=== PATIENT | male | born 1965 | race Two or more races ===

== ENCOUNTER 2017-12-29 18:13 | Emergency (ER) | payer MEDICAID ==
[~2017-12-29] VITALS: Ht 180.3 cm; Wt 77.1 kg
[~2017-12-29 18:13] MED LIST: AMOX500 PO; HYDACE10B PO; IBUP800 PO; NAPR550 PO; OXYACE5T PO
[2017-12-29 19:02] LABS: BASOPHILS ABSOLUTE AUTO 0.03 K/mm3 (0.00-0.23); BASOPHILS PERCENT AUTO 1 % (0-2); EOSINOPHILS ABSOLUTE AUTO 0.05 K/mm3 (0.00-0.68); EOSINOPHILS PERCENT AUTO 1 % (0-6); Hematocrit 50.7 % (37.0-53.0); Hemoglobin 17.3 g/dL (13.5-17.5); Mean Corpuscular HGB 31.1 pg (26.0-34.0); Mean Corpuscular HGB Conc 34.1 g/dL (31.5-36.5); Mean Corpuscular Volume 91 fL (80-100); Mean Platelet Volume 9.5 fL (9.1-12.4); Platelet Count 158 K/mm3 (150-400); RDW Standard Deviation 40.7 fL (35.1-46.3); Red Blood Cell Count 5.57 M/mm3 (4.30-5.90); White Blood Cell Count 5.48 K/mm3 (4.00-11.30)
[2017-12-29 19:06] LABS: IMMATURE GRAN ABSOLUTE AUTO 0.01 K/mm3 (0.00-0.10); IMMATURE GRAN PERCENT AUTO 0 % (0-1); LYMPHOCYTES ABSOLUTE AUTO 1.59 K/mm3 (0.84-5.20); LYMPHOCYTES PERCENT AUTO 29 % (21-46); MONOCYTES ABSOLUTE AUTO 1.08 K/mm3 (0.16-1.47); MONOCYTES PERCENT AUTO 20 % (4-13); NEUTROPHILS ABSOLUTE AUTO 2.72 K/mm3 (1.96-9.15); NEUTROPHILS PERCENT AUTO 50 % (41-73)
[2017-12-29 19:20] LABS: Alanine Aminotransfer (ALT/SGP 43 U/L (12-78); Albumin, Blood 3.5 g/dL (3.4-5.0); Albumin/Globulin Ratio 0.9 (0.8-1.8); Alk Phos 101 U/L (50-136); Anion Gap 6 mmol/L (6-16); Aspartate Aminotrans (AST/SGOT 30 U/L (12-37); Bilirubin, Total 0.2 mg/dL (0.1-1.0); Blood Urea Nitrogen 17 mg/dL (8-24); Bun/Creatinine Ratio 18.7 (12.0-20.0); CO2, Blood 29 mmol/L (21-32); Calcium, Blood 8.8 mg/dL (8.5-10.1); Chloride, Blood 101 mmol/L (98-108); Creatinine, Blood 0.91 mg/dL (0.60-1.20); Globulin, Blood 3.9 g/dL (2.2-4.0); Glomerular Filtration Rate >60 (60-); Glucose, Blood 123 mg/dL (70-99); Sodium, Blood 136 mmol/L (136-145); Total Protein, Blood 7.4 g/dL (6.4-8.2)
[2017-12-29 19:30] LABS: BAND PERCENT MAN 3 % (0-8); BASOPHILS PERCENT MAN 0 % (0-2); EOSINOPHILS ABSOLUTE MAN 0.05 K/mm3 (0.00-0.68); EOSINOPHILS PERCENT MAN 1 % (0-6); LYMPHOCYTES % ATYPICAL MANUAL 3 % (0-0); LYMPHOCYTES ABSOLUTE MAN 1.42 K/mm3 (0.84-5.20); LYMPHOCYTES PERCENT MAN 23 % (21-46); MONOCYTES ABSOLUTE MAN 1.42 K/mm3 (0.16-1.47); MONOCYTES PERCENT MAN 26 % (4-13); NEUTROPHILS ABSOLUTE MAN 2.57 K/mm3 (1.96-9.15); SEG NEUTROPHILS PERCENT MAN 44 % (41-73); TOTAL CELLS COUNTED 100
[2017-12-29 20:54] LABS: Source, Urine Voided
[2017-12-29 20:56] LABS: Bilirubin, Urine Neg (Neg); Blood, Urine Neg (Neg); Glucose Qualitative, Urine Neg (Neg); Ketones, Urine Neg (Neg); Leukocyte Esterase, Urine Neg (Neg); Nitrite, Urine Neg (Neg); Protein, Urine 1+ (Neg); Urobilinogen, Urine NORM (Normal)
[2017-12-29 21:02] LABS: Appearance, Urine Hazy (Clear); Bacteria Not Seen /hpf; Color, Urine Yellow (P-Yellow); Mucus Mod (0-Heavy); Red Blood Cells, Urine Not Seen /hpf (0-2); Squamous Epithelial Cells Rare /hpf (Few); White Blood Cells, Urine Rare /hpf (0-5)
[2017-12-29] MEDS ORDERED: Roxicodone5 MG PO (21:23)
[2017-12-29] MEDS ORDERED: Zovirax800 MG PO (21:29)
== END 2017-12-29 21:38 | disposition home or self-care (01) ==
LOC: ER 18:13
PROVIDERS: Emergency Medicine
DX: B02.9 Zoster without complications (principal); F17.210 Nicotine dependence, cigarettes, uncomplicated
CPT/HCPCS: 36415; 80053; 81001; 85025; 96374; 96375; 99283-25; J1170; J1885; Q0163

== ENCOUNTER 2018-10-22 21:43 | Emergency (ER) | payer MEDICAID ==
[~2018-10-22] VITALS: Ht 177.8 cm; Wt 70.3 kg
[~2018-10-22 21:43] MED LIST changes: +Roxicodone5 MG PO; +Zovirax800 MG PO
[2018-10-22] MEDS ORDERED: IBUP600 PO (23:25)
[2018-10-22] MEDS ORDERED: Bactrim Ds Tab1 EACH PO (23:25)
[2018-10-22] MEDS ORDERED: CEPH500 PO (23:25)
[2018-10-23 00:20] LABS: Body Fluid Crystals NEG (NEGATIVE)
[2018-10-23 00:27] LABS: Appearance, Synovial Fluid Cloudy (Clear); Color, Synovial Fluid Dark Yellow (None-P Yel); RBC Count, Synovial Fluid 9000 /mm3 (0-0); WBC Count, Synovial Fluid 15625 /mm3 (0-180)
[2018-10-23 00:30] LABS: Protein, Body Fluid 5.6 g/dL
[2018-10-23 00:34] LABS: Glucose, Body Fluid <1 mg/dL
[2018-10-23 00:42] LABS: Lymphs, Synovial Fluid 1 % (0-15); Monocytes/Macrophages, Synovia 26 % (0-65); Neutrophils, Synovial Fluid 73 % (0-24)
== END 2018-10-22 23:39 | disposition home or self-care (01) ==
LOC: ER 21:43
PROVIDERS: Emergency Medicine
DX: M70.11 Bursitis, right hand (principal); F17.210 Nicotine dependence, cigarettes, uncomplicated
CPT/HCPCS: 20605; 73130; 82945; 84157; 87070; 87075; 87205; 89051; 89060; 99283-25

== ENCOUNTER 2023-05-02 19:08 | Emergency (ER) | payer OTHER, MEDICARE ==
[~2023-05-02] VITALS: Ht 180.3 cm; Wt 79.4 kg
[~2023-05-02 19:08] MED LIST changes: +Bactrim Ds Tab1 EACH PO; +CEPH500 PO; +IBUP600 PO
[2023-05-02] MEDS ORDERED: Ondansetron HCl 2 MG / ML 2ML Vial IV ONE (20:50)
[2023-05-02] MEDS ORDERED: HYDROmorphone HCl/Pf 1MG SYR IV PRN (20:50)
[2023-05-02] MEDS ORDERED: NiCARdipine HCL 25 MG in NS 250 ML IV SCH (21:50)
[2023-05-02 21:57] LABS: BASOPHILS ABSOLUTE AUTO 0.04 K/mm3 (0.00-0.23); BASOPHILS PERCENT AUTO 0 % (0-2); EOSINOPHILS ABSOLUTE AUTO 0.05 K/mm3 (0.00-0.68); EOSINOPHILS PERCENT AUTO 0 % (0-6); Hematocrit 47.3 % (37.0-53.0); IMMATURE GRAN ABSOLUTE AUTO 0.09 K/mm3 (0.00-0.10); IMMATURE GRAN PERCENT AUTO 1 % (0-1); LYMPHOCYTES ABSOLUTE AUTO 1.55 K/mm3 (0.84-5.20); LYMPHOCYTES PERCENT AUTO 9 % (21-46); MONOCYTES ABSOLUTE AUTO 1.05 K/mm3 (0.16-1.47); MONOCYTES PERCENT AUTO 6 % (4-13); Mean Corpuscular HGB 31.5 pg (26.0-34.0); Mean Corpuscular HGB Conc 33.8 g/dL (31.5-36.5); Mean Corpuscular Volume 93 fL (80-100); Mean Platelet Volume 9.1 fL (9.1-12.4); NEUTROPHILS ABSOLUTE AUTO 14.08 K/mm3 (1.96-9.15); NEUTROPHILS PERCENT AUTO 84 % (41-73); Platelet Count 245 K/mm3 (150-400); RDW Coefficient Variation 12.8 % (11.7-14.2); RDW Standard Deviation 44.1 fL (35.1-46.3); Red Blood Cell Count 5.08 M/mm3 (4.30-5.90); White Blood Cell Count 16.86 K/mm3 (4.00-11.30)
[2023-05-02 22:16] LABS: Alanine Aminotransfer (ALT/SGP 29 U/L (12-78); Albumin, Blood 3.4 g/dL (3.4-5.0); Alk Phos 80 U/L (50-136); Anion Gap 2 mmol/L (6-16); Aspartate Aminotrans (AST/SGOT 43 U/L (12-37); Bilirubin, Total 0.5 mg/dL (0.1-1.0); Blood Urea Nitrogen 16 mg/dL (8-24); Bun/Creatinine Ratio 18.1 (12.0-20.0); CO2, Blood 26 mmol/L (21-32); Calcium, Blood 8.5 mg/dL (8.5-10.1); Chloride, Blood 112 mmol/L (98-108); Creatinine, Blood 0.89 mg/dL (0.60-1.20); Globulin, Blood 3.4 g/dL (2.2-4.0); Glomerular Filtration Rate 99 (60-); Glucose, Blood 124 mg/dL (70-99); Potassium, Blood 3.7 mmol/L (3.5-5.5); Sodium, Blood 140 mmol/L (136-145); Total Protein, Blood 6.8 g/dL (6.4-8.2)
[2023-05-02] MEDS ORDERED: levETIRAcetam 1,000 MG in NS 100 ML IV ONE (23:05)
[2023-05-02 23:23] LABS: Source, Urine Clean Catch
[2023-05-02 23:26] LABS: Bilirubin, Urine Neg (Neg); Blood, Urine Neg (Neg); Glucose Qualitative, Urine Neg (Neg); Ketones, Urine 2+ (Neg); Leukocyte Esterase, Urine Neg (Neg); Nitrite, Urine Neg (Neg); Protein, Urine Neg (Neg); Urobilinogen, Urine NORM (Normal)
[2023-05-02 23:32] LABS: Salicylate <1.7 mg/dL (2.8-20.0)
[2023-05-02 23:40] LABS: International Normalized Ratio 0.94; Prothrombin Time Results 9.9 Sec (9.7-11.5)
[2023-05-02 23:44] LABS: Acetaminophen, Random <2.0 ug/mL (10.0-30.0)
[2023-05-02 23:45] LABS: Appearance, Urine Clear (Clear); Color, Urine Pale Yellow (P-Yellow)
[2023-05-02 23:48] LABS: U Cannabinoids Screen DETECTED
[2023-05-02 23:49] LABS: U Amphetamine Screen DETECTED; U Barbituate Screen Not Detected; U Benzodiazapine Screen Not Detected; U Buprenorphine Screen Not Detected; U Cocaine Screen Not Detected; U Methadone Screen Not Detected; U Methamphetamine Screen DETECTED; U Opiates Screen DETECTED; U Oxycodone Screen Not Detected; U Phencyclidine Screen Not Detected
[2023-05-03 00:02] LABS: Base Excess Venous 0.9 mmol/L; Bicarbonate Venous 24.7 mmol/L (24.0-30.0); PCO2 Venous 46.8 mmHg (38-42); pH Blood Venous 7.36 (7.34-7.37)
[2023-05-03] MEDS ORDERED: FENTANYL CITRATE IV SCH (00:15)
[2023-05-03] MEDS ORDERED: Midazolam HCl 1MG / ML 2ML Vial IV ONE ×2 (00:15→09:34)
[2023-05-03] MEDS ORDERED: NS IV SCH (00:15)
[2023-05-03] MEDS ORDERED: Esmolol HCL 2500mg/250ml Prema 250 ML IV SCH (00:25)
[2023-05-03 00:30] VITALS: BP 116/76
[2023-05-03] MEDS ORDERED: Rocuronium Bromide 10 MG/ML 5ML Injection IV ONE (09:34)
[2023-05-03] MEDS ORDERED: Etomidate 2MG / ML 10ML Vial XX ONE (09:34)
== END 2023-05-03 00:45 | disposition short-term general hospital (02) ==
LOC: ER 19:08
PROVIDERS: Emergency Medicine
DX: S06.6X0A Traumatic subarachnoid hemorrhage without loss of consciousness, initial encounter (principal); I10 Essential (primary) hypertension; F17.210 Nicotine dependence, cigarettes, uncomplicated; V89.2XXA Person injured in unspecified motor-vehicle accident, traffic, initial encounter; Z79.899 Other long term (current) drug therapy
CPT/HCPCS: 31500; 51702; 51798; 70450; 70496; 70498; 71045; 72125; 80053; 81003; 82140; 82803; 85025; 85610; 85730; 86850; 86900; 86901; 93005; 93010; 96365-59; 96366; 96368; 96375-59; 96376-59; 99291-25; 99292; G0480; J1170; J1953; J2250; J2405; J3010; J7050; L0160; Q9967

== ENCOUNTER 2024-02-21 09:47 | Emergency (ER) | payer MEDICARE ==
[~2024-02-21] VITALS: Ht 180.3 cm; Wt 77.1 kg
[2024-02-21 10:36] VITALS: BP 160/90
[2024-02-21] MEDS ORDERED: ALBU90OI INH (12:13)
[2024-02-21] MEDS ORDERED: PRED20 PO (12:13)
[2024-02-21] MEDS ORDERED: QVAR REDIHALE10.6 G2 INH (12:13)
== END 2024-02-21 12:15 | disposition home or self-care (01) ==
LOC: ER 09:47
DX: J45.901 Unspecified asthma with (acute) exacerbation (principal)
CPT/HCPCS: 71046; 99283-25